=== PATIENT | female | born 1950 | race Caucasian/White ===

== ENCOUNTER → 2019-11-04 | Outpatient (CLI) | payer MEDICARE, BC | END | disposition home or self-care (01) | LOC: CFH 09:49 | PROVIDERS: ATTEND Family Medicine | DX: M85.88 Other specified disorders of bone density and structure, other site (principal) ==

== ENCOUNTER 2019-11-18 08:04 | Outpatient (CLI) | payer MEDICARE, BC | END 2019-11-18 23:59 | disposition home or self-care (01) | LOC: CFH 08:04 | PROVIDERS: ATTEND Family Medicine | DX: Z12.31 Encounter for screening mammogram for malignant neoplasm of breast (principal); M85.88 Other specified disorders of bone density and structure, other site; N95.9 Unspecified menopausal and perimenopausal disorder; N64.89 Other specified disorders of breast | CPT/HCPCS: 77080; 77067 ==